=== PATIENT | female | born 1965 | race Caucasian/White ===

== ENCOUNTER 2019-07-22 16:39 | Emergency (ER) | payer SELFPAY ==
--- NOTE | 2019-07-22 18:15 | RAD REPORT ---
EXAM DESCRIPTION: RAD - Chest Single View - 07/22/2019 5:58 pm CLINICAL HISTORY: cough, shortness of breath COMPARISON: Portable chest April 2014 TECHNIQUE: AP portable chest image was obtained 07/22/2019 5:58 pm . FINDINGS: No focal mass or consolidation. Interstitial pattern has increased from prior imaging. Bul lous changes are evident in the upper lung paul, worse on the right. Heart and vasculature are norm al. No measurable pleural effusion and no pneumothorax. No acute bony abnormality seen. No acute aort ic findings suspected. IMPRESSION: COPD changes are evident. No focal mass or consolidation. Increased interstitial pattern could reflect progressive chronic interstitial disease, acute edema, a cute interstitial infiltrate or a combination.
[2019-07-22] MEDS ORDERED: IPRATROPIUM BROM 0.5MG/2.5ML ONE (18:28)
[2019-07-22] MEDS ORDERED: ALBUTEROL 2.5 MG/3 ML NEB SOL ONE (18:29)
--- NOTE | 2019-07-22 20:09 | EDPHYS ---
Physician Documentation [facility] Name: Marguerite Ca Age: 54 yrs Sex: Female : 1965 Arrival Date: 07/22/2019 Time: 16:44 Bed 19 Private MD: ED Physician Juanito Burgos HPI: 07/21 17:42 This 54 yrs old Female presents to ER via Ambulatory with complaints of Dry jmm Cough, Throat Itchness. 17:42 The patient or guardian reports cough. Onset: The symptoms/episode began/occurred jmm gradually, 3 month(s) ago. Modifying factors: The symptoms are alleviated by nothing, the symptoms are aggravated by nothing. This is a 54 year old female with a history of htn that presents to the ED with complaints of cough, shortness of breath beginning 3 months ago. Patient states having 2 rounds of abx with no relief. Patient admits to tobacco use. . Historical: - Allergies: 17:12 Morphine; ll1 - PMHx: 17:12 Hypertension; Thyroid problem; ll1 - PSHx: 17:12 ; ll1 - Social history:: Smoking status: Patient reports the use of cigarette tobacco products, smokes one pack cigarettes per day. Patient/guardian denies using alcohol, street drugs. ROS: 17:42 Constitutional: Negative for fever, chills, and weight loss, Cardiovascular: Negative jmm for chest pain, palpitations, and edema. 17:42 Respiratory: Positive for cough, shortness of breath. 17:42 All other systems are negative. Exam: 17:42 Constitutional: This is a well developed, well nourished patient who is awake, alert, jmm and in no acute distress. Head/Face: atraumatic. Eyes: EOMI, no conjunctival erythema appreciated ENT: Moist Mucus Membranes Neck: Trachea midline, Supple Chest/axilla: Normal chest wall appearance and motion. Cardiovascular: Regular rate and rhythm. No edema appreciated 17:42 Abdomen/GI: Non distended, soft Back: Normal ROM Skin: General appearance color normal MS/ Extremity: Moves all extremities, no obvious deformities appreciated, no edema noted to the lower extremities Neuro: Awake and alert, normal gait Psych: Behavior is normal, Mood is normal, Patient is cooperative and pleasant 17:42 Respiratory: the patient does not display signs of respiratory distress, Respirations: normal. Vital Signs: 17:08 BP 167 / 97; Pulse 78; Resp 19; Temp 97.5; Pulse Ox 97% on R/A; Pain 0/10; ll1 18:41 BP 146 / 82; Pulse 80; Resp 20; Pulse Ox 99% ; ah 19:30 BP 130 / 83; Pulse 81; Resp 18; Pulse Ox 96% ; ah MDM: 17:42 Patient medically screened. [facility] 20:06 Data reviewed: vital signs, nurses notes. Counseling: I had a detailed discussion with [facility] the patient and/or guardian regarding: the historical points, exam findings, and any diagnostic results supporting the discharge/admit diagnosis, radiology results, the need for outpatient follow up, to return to the emergency department if symptoms worsen or persist or if there are any questions or concerns that arise at home. ED course: Patient states feeling much better. VS wnl. Most likely COPD. Patient is advised to follow up with pcp or pulmonology for for further evaluation. Patient is otherwise given strict return precautions. Patient understood and agrees with the plan of care. . 07/21 17:43 Order name: Chest Single View XRAY; Complete Time: 18:17 [facility] Administered Medications: 18:35 Drug: DuoNeb (3:1) (2.5 mg - 0.5 mg) 3 ml Route: Nebulizer; 20:27 Follow up: Response: No adverse reaction 20:51 Follow up: Response: No adverse reaction 20:23 Drug: Decadron 10 mg Route: IM; Site: right ventrogluteal; 20:51 Follow up: Response: No adverse reaction Disposition: 07/22/19 20:08 Discharged to Home. Impression: Bronchitis, not specified as acute or chronic. - Condition is Stable. - Discharge Instructions: Acute Bronchitis, Adult, Chronic Bronchitis, How to Use an Inhaler. - Prescriptions for Medrol (Wojciech) 4 mg Oral Tablets, Dose Pack - take 1 tablet by ORAL route as directed - follow package instructions; 1 packet. Albuterol Sulfate 90 mcg/actuation - inhale 1-2 puff by INHALATION route every 4-6 hours; 1 Inhaler. - Medication Reconciliation Form, Thank You Letter, Antibiotic Education, Prescription Opioid Use form. - Follow up: Private Physician; When: 2 - 3 days; Reason: Recheck today's complaints, Continuance of care, Re-evaluation by your physician. Signatures: Dispatcher [employer] EDMahin Fish PA PA jmm Harris, Amy RN RN Melinda Ram RN RN ll1 Corrections: (The following items were deleted from the chart) 20:51 20:08 07/22/2019 20:08 Discharged to Home. Impression: Bronchitis, not specified as ah acute or chronic. Condition is Stable. Forms are Medication Reconciliation Form, Thank You Letter, Antibiotic Education, Prescription Opioid Use. Follow up: Private Physician; When: 2 - 3 days; Reason: Recheck today's complaints, Continuance of care, Re-evaluation by your physician. [place]
--- NOTE | 2019-07-22 20:09 | ER ---
Nurse's Notes [facility] Name: Marguerite Ca Age: 54 yrs Sex: Female : 1965 Arrival Date: 07/22/2019 Time: 16:44 Bed 19 Private MD: Diagnosis: Bronchitis, not specified as acute or chronic Presentation: 07/21 17:08 Chief complaint: Patient states: Dry cough for 3 months. Still has cough after 2 rounds ll1 of antibiotics. Diagnosed with strep throat 2 months ago, still has throat itchiness. No fever. Coronavirus screen: Proceed with normal triage. Patient reports a cough. Patient denies shortness of breath or difficulty breathing. Patient denies measured and/or subjective temperature greater than 100.4F prior to today's visit. Patient denies travel on a cruise ship or to a country the [facility] currently lists as an affected area. Patient denies contact with known and/or suspected case of COVID-19. Ebola Screen: Patient denies travel to an Ebola-affected area in the 21 days before illness onset. Initial Sepsis Screen: Does the patient meet any 2 criteria? No. Patient's initial sepsis screen is negative. Does the patient have a suspected source of infection? No. Patient's initial sepsis screen is negative. Risk Assessment: Do you want to hurt yourself or someone else? Patient reports no desire to harm self or others. Onset of symptoms was May 22, 2019. 17:08 Method Of Arrival: Ambulatory ll1 17:08 Acuity: MALOU 3 ll1 Historical: - Allergies: 17:12 Morphine; ll1 - PMHx: 17:12 Hypertension; Thyroid problem; ll1 - PSHx: 17:12 ; ll1 - Social history:: Smoking status: Patient reports the use of cigarette tobacco products, smokes one pack cigarettes per day. Patient/guardian denies using alcohol, street drugs. Screenin:50 Abuse screen: Denies threats or abuse. Nutritional screening: No deficits noted. Tuberculosis screening: No symptoms or risk factors identified. Fall Risk None identified. Assessment: 17:30 General: Appears uncomfortable, Behavior is calm, cooperative. Pain: Denies pain. Neuro: Level of Consciousness is awake, alert, Oriented to person, place, time, situation. Cardiovascular: Heart tones S1 S2 present. Respiratory: Airway is patent Respiratory effort is even, labored, Respiratory pattern is regular, symmetrical, Breath sounds are diminished bilaterally. Onset: The symptoms/episode began/occurred. GI: No signs and/or symptoms were reported involving the gastrointestinal system. : No signs and/or symptoms were reported regarding the genitourinary system. EENT: No signs and/or symptoms were reported regarding the EENT system. Derm: No signs and/or symptoms reported regarding the dermatologic system. Musculoskeletal: No signs and/or symptoms reported regarding the musculoskeletal system. Vital Signs: 17:08 BP 167 / 97; Pulse 78; Resp 19; Temp 97.5; Pulse Ox 97% on R/A; Pain 0/10; ll1 18:41 BP 146 / 82; Pulse 80; Resp 20; Pulse Ox 99% ; ah 19:30 BP 130 / 83; Pulse 81; Resp 18; Pulse Ox 96% ; ah ED Course: 16:44 Patient arrived in ED. bp1 17:11 Triage completed. ll1 17:12 Arm band placed on Patient notified of wait time. [facility] [place] 17:34 Mahin Brown PA is PHCP. [facility] 17:34 Juanito Burgos MD is Attending Physician. [facility] 17:37 Radha Marie, RN is Primary Nurse. ah 17:58 Chest Single View XRAY In Process Unspecified. EDMS 20:00 Patient has correct armband on for positive identification. Bed in low position. Call light in reach. Side rails up X 1. 20:30 No provider procedures requiring assistance completed. Patient did not have IV access during this emergency room visit. Administered Medications: 18:35 Drug: DuoNeb (3:1) (2.5 mg - 0.5 mg) 3 ml Route: Nebulizer; 20:27 Follow up: Response: No adverse reaction ah 20:51 Follow up: Response: No adverse reaction 20:23 Drug: Decadron 10 mg Route: IM; Site: right ventrogluteal; 20:51 Follow up: Response: No adverse reaction Outcome: 20:08 Discharge ordered by . [facility] 20:35 Discharged to home ambulatory. 20:35 Condition: good 20:35 Discharge instructions given to patient, Instructed on discharge instructions, follow up and referral plans. Demonstrated understanding of instructions, follow-up care, medications, Prescriptions given X 2. 20:51 Patient left the ED. Signatures: Dispatcher [employer] EDMS Mahin Brown PA PA jmm Harris, Amy, RN RN Melinda Ram RN RN ll Aminta Montanez
[2019-07-22] MEDS ORDERED: dexAMETHasone 10 MG/ML VIAL ONE (20:26)
[2019-07-22 20:57] VITALS: TEMP 97.5
[2019-07-22 21:00] VITALS: BP 130/83; O2SAT 96
== END 2019-07-22 20:51 | disposition home or self-care (01) ==
LOC: ER 16:39
DX: J40 Bronchitis, not specified as acute or chronic (principal); Z88.6 Allergy status to analgesic agent; F17.210 Nicotine dependence, cigarettes, uncomplicated
CPT/HCPCS: 71045; 94640; 96372; 99284; J1100

== ENCOUNTER 2020-07-08 11:35 | Emergency (ER) | payer OTHER, SELFPAY ==
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
[2020-07-08] MEDS ORDERED: CEPHALEXIN 250 MG CAP ONE (13:49)
[2020-07-08] MEDS ORDERED: SMZ./TMP. 800/160 MG TABLET ONE (13:49)
[2020-07-08] MEDS ORDERED: TETANUS & DIPHTHERIA TOX,ADULT 0.5 ML VIAL ONE (13:49)
[2020-07-08] MEDS ORDERED: KETOROLAC 30 MG/ML INJ ONE (13:49)
[2020-07-08 14:50] VITALS: TEMP 98.5
[2020-07-08 14:56] VITALS: BP 138/72; O2SAT 100
== END 2020-07-08 14:37 | disposition home or self-care (01) ==
LOC: ER 11:35
DX: S51.812A Laceration without foreign body of left forearm, initial encounter (principal); W26.0XXA Contact with knife, initial encounter; Y93.89 Activity, other specified; Y92.89 Other specified places as the place of occurrence of the external cause; Z23 Encounter for immunization; Z88.5 Allergy status to narcotic agent; I10 Essential (primary) hypertension; F17.210 Nicotine dependence, cigarettes, uncomplicated
CPT/HCPCS: 90471; 90714; 96372; 99283